=== PATIENT | male | born 1970 | race Caucasian/White ===

== ENCOUNTER → 2016-10-24 | Day surgery (SDC) | payer OTHER ==
[~2016-10-24] VITALS: Ht 167.6 cm; Wt 77.1 kg
[~2016-10-24] MED LIST: HYDROCODONE BIT1 T11 PO; OMNICEF300 MG PO
--- NOTE | ~2016-10-24 | O ---
[place], [place] OPERATIVE NOTE NAME: AYDEE LIGHT JR [place] CLINICT #: [id number] UNIT #: [id number] ROOM: DOCTOR: ELIUD VALLE MD BIRTHDATE: [birth year] DOS: 10/24/2016 PREOPERATIVE DIAGNOSES: Chronic pansinusitis and bilateral nasal polyposis. POSTOPERATIVE DIAGNOSES: Chronic pansinusitis and bilateral nasal polyposis. PROCEDURE: Bilateral nasal polypectomy and bilateral maxillary antrostomy. SURGEON: Eliud Valle MD ANESTHESIA: General endotracheal. ESTIMATED BLOOD LOSS: 100 mL. PACKING: Merocel packs x 2. INDICATIONS: The patient is a 46-year-old male with a history of chronic sinonasal polyposis and chronic pansinusitis, is being taken to the operating room for nasal polypectomy. DESCRIPTION OF PROCEDURE: Following induction of general endotracheal anesthesia, the patient was positioned supine on the OR table. He was draped in a standard fashion for sinus surgery. Approximately 10 mL of 1% lidocaine with 100,000 epinephrine was injected into the lateral nasal wall and nasal turbinates and polyps. Bilateral nasal polypectomy was performed with ethmoid forceps. The excised tissue was submitted to pathology for histologic analysis. Endoscopic instrumentation was also utilized to perform bilateral maxillary antrostomy without difficulty. At the end of the case, all instrument and sponge counts were correct. The patient was awakened, extubated and transported to PACU in satisfactory condition. He did have Merocel packing placed in the nasal cavities bilaterally, which will be removed tomorrow. ELIUD VALLE MD CM:OPRECORD:OPERATIVE NOTE [id number] ELIUD VALLE MD 10/25/16 0921 interface
[2016-10-24 13:19] VITALS: BP 116/77
[2016-10-24 13:35] VITALS: BP 125/71
[2016-10-24 13:50] VITALS: BP 123/76
[2016-10-24 14:05] VITALS: BP 119/85
[2016-10-24 14:20] VITALS: BP 128/86
[2016-10-24 14:59] VITALS: BP 129/84
== END | disposition home or self-care (01) ==
LOC: SDC 10-18 08:45
DX: J32.4 Chronic pansinusitis (principal); J33.9 Nasal polyp, unspecified; J45.909 Unspecified asthma, uncomplicated; Z83.3 Family history of diabetes mellitus